=== PATIENT | female | born 1985 | race Caucasian/White ===

== ENCOUNTER 2018-04-15 19:31 | Inpatient (IN) ==
[2018-04-16] MEDS ORDERED: Acetaminophen 325 MG Tablet PO PRN (05:36)
[2018-04-16] MEDS ORDERED: Bisacodyl 10 MG Supp RECTAL PRN (05:36)
[2018-04-16] MEDS ORDERED: Temazepam 15 MG Capsule PO PRN (05:36)
[2018-04-16] MEDS: Senna/Docusate Sodium 8.6/50 MG Tablet PO SCH ×2 (08:23→21:08)
[2018-04-16 10:25] LABS: Hematocrit 29.3 % (35.0-46.0); Mean Corpuscular Hemoglobin 21.5 pg (27.0-34.0); Mean Platelet Volume 11.3 fL (7.0-11.0); Platelet Count 140 th/mm3 (150-450); Red Blood Count 4.18 mil/mm3 (4.00-5.30); White Blood Count 8.6 th/mm3 (4.0-11.0)
[2018-04-16 10:28] LABS: Mean Corpuscular HGB Conc 30.7 % (32.0-36.0)
[2018-04-16 10:33] LABS: INR 1.2 Ratio; Prothrombin Time 11.7 sec (9.8-11.6)
--- NOTE | 2018-04-16 11:35 | P.HPIM ---
History of Present Illness Primary Care Physician: UNKNOWN Chief Complaint: pain to the left leg History of Present Illness: patient is a 32 y/o female with o significant past medical history who presented to ER with headache and pain to the left leg. she says that she was at her usual state of health till Friday when she started to have some pain to the left thigh. she says that she had some sob and chest pressure at the time. she says that she gets headache from time to time and it normally resolved on taking pain medications but this time the headache persisted till she came to ER. she denies any other symptoms including focal weakness. she doesn't report any recent surgery or long trips. she also says that her menstruation is not regular and is heavy from time to time.at the time of my evaluation she was resting comfortably with o headache, chest pain or sob. Inpatient Certification: I certify that the inpatient services were ordered in accordance with Medicare regulations governing the order. This includes certification that hospital inpatient services are reasonable and necessary and in the case of services not specified as inpatient-only under 42 CFR 419.22(n), that they are appropriately provided as inpatient services in accordance to with the 2-midnight benchmark under 43 CFR 412.3(e) Estimated Total Length of Stay (Days): 2 Plans for Post Hospital Care: Not yet determined Review of Systems All other systems reviewed negative except as stated in HPI PMFSH - History History Provided By: Patient - Tobacco History Second Hand Smoke Exposure: No Smoking Status: Never smoker - Alcohol History How Often Do You Have a Drink Containing Alcohol: Never - Substance Use History Substance History: No History of Abuse - Immunization History Hx Influenza Vaccine This Season: Unable to Assess Medications and Allergies Active Medications: Active Medications Acetaminophen (Tylenol) 650 mg PO Q4H PRN PRN Reason: Temp > 100.4 Last Admin: 04/16/18 08:22 Dose: 650 mg Al Hydroxide/Mg Hydroxide (Milk Of Magnesia Liq) 30 ml PO Q12H PRN PRN Reason: Mild Constipation Bisacodyl (Dulcolax Supp) 10 mg RECTAL DAILY PRN PRN Reason: SEVERE CONSITIPATION Heparin Sodium/Dextrose (Heparin/D5w 25,000 U/250 Ml) 25,000 unit in 250 mls @ 18 mls/hr IV.CONT TITRATE PRN; Protocol PRN Reason: Per Protocol Lactulose (Lactulose Liq) 30 ml PO DAILY PRN PRN Reason: SEVERE CONSITIPATION Ondansetron HCl (Zofran Inj) 4 mg IV.PUSH Q6H PRN PRN Reason: NAUSEA OR VOMITING Senna/Docusate Sodium (Merna-Colace) 1 tab PO BID ABHIJEET Last Admin: 04/16/18 08:23 Dose: Not Given Sennosides (Senokot) 17.2 mg PO Q12H PRN PRN Reason: Moderate Constipation Temazepam (Restoril) 15 mg PO HS PRN PRN Reason: INSOMNIA Allergies Allergy/AdvReac Type Severity Reaction Status Date / Time No Known Allergies Allergy Unverified 04/15/18 19:37 Home Medications Medication Instructions Recorded Confirmed Type No Known Home Medications 04/15/18 04/15/18 History Exam Vital signs: Vital Signs 04/16/18 05:56 04/16/18 08:00 Temperature 99.6 F Pulse Rate 95 H 94 H Respiratory Rate 18 18 Blood Pressure 140/84 132/75 Pulse Oximetry 99 98 Intake & Output 04/15/18 04/16/18 04/16/18 18:59 06:59 18:59 Weight 241 kg Other: Weight On Admission 241 kg - Constitutional no acute distress - Routine HEENT Exam Eye: Present: PERRL - Routine Neck Exam Present: supple - Routine Respiratory Exam Present: CTA bilaterally - Routine Cardiovascular Exam Present: RRR - Routine Abdominal Exam Present: soft - Routine Extremities Exam Present: tenderness (mild tenderness on left thigh.) - Routine Neurological Exam Present: alert, oriented X3 Results - Labs CBC & Chem 7: 04/16/18 09:14 Labs: Short CBC 04/16/18 Range/Units 09:14 WBC 8.6 (4.0-11.0) th/mm3 Hgb 9.0 L (11.6-15.3) gm/dL Hct 29.3 L (35.0-46.0) % Plt Count 140 L (150-450) th/mm3 Caprini VTE Risk Assessment Caprini VTE Risk Assessment: Moderate/High Risk (score >= 2) Caprini Risk Assessment Model: Point Value = 1 Point Value = 2 Point Value = 3 Point Value = 5 Age 41-60 Minor surgery BMI > 25 kg/m2 Swollen legs Varicose veins or History of unexplained or recurrent spontaneous Oral contraceptives or hormone replacement Sepsis (< 1 month) Serious lung disease, including pneumonia (< 1 month) Abnormal pulmonary function Acute myocardial infarction Congestive heart failure (< 1 month) History of inflammatory bowel disease Medical patient at bed rest Age 61-74 Arthroscopic surgery Major open surgery (> 45 min) Laparoscopic surgery (> 45 min) Malignancy Confined to bed (> 72 hours) Immobilizing plaster cast Central venous access Age >= 75 History of VTE Family history of VTE Factor V Leiden Prothrombin [id number] Lupus anticoagulant Anticardiolipin antibodies Elevated serum homocysteine Heparin-induced thrombocytopenia Other congenital or acquired thrombophilia Stroke (< 1 month) Elective arthroplasty Hip, pelvis, or leg fracture Acute spinal cord injury (< 1 month) Prophylaxis Regimen: Total Risk Factor Score Risk Level Prophylaxis Regimen 0-1 Low Early ambulation 2 Moderate Order ONE of the following: *Sequential Compression Device (SCD) *Heparin 5000 units SQ BID 3-4 Higher Order ONE of the following medications: *Heparin 5000 units SQ TID *Enoxaparin/Lovenox 40 mg SQ daily (WT < 150 kg, CrCl > 30 mL/min) *Enoxaparin/Lovenox 30 mg SQ daily (WT < 150 kg, CrCl > 10-29 mL/min) *Enoxaparin/Lovenox 30 mg SQ BID (WT < 150 kg, CrCl > 30 mL/min) AND/OR *Sequential Compression Device (SCD) 5 or more Highest Order ONE of the following medications: *Heparin 5000 units SQ TID (Preferred with Epidurals) *Enoxaparin/Lovenox 40 mg SQ daily (WT < 150 kg, CrCl > 30 mL/min) *Enoxaparin/Lovenox 30 mg SQ daily (WT < 150 kg, CrCl > 10-29 mL/min) *Enoxaparin/Lovenox 30 mg SQ BID (WT < 150 kg, CrCl > 30 mL/min) AND *Sequential Compression Device (SCD) Assessment and Plan - Plan - PE continue on Heparin drip- check venous doppler of the left lower extremity and consult Hematology. -anemia- hypochromic microcytic- likely due to abnormal uterine bleeding check the iron panel- f/u with [facility] as outpatient. Discharge Planning: pending Hematology evaluation.
[2018-04-16] MEDS: Heparin Drip 25,000 UNIT/250 ML BAG IV.CONT PRN (12:01)
--- NOTE | 2018-04-16 13:25 | P.CON ---
History of Present Illness Service: Hematology Consult date: 04/16/18 Reason for Consult: Unprovoked pulmonary emboli (submassive). Primary Care Provider: UNKNOWN Chief Complaint: Difficulty breathing, chest pain and pain in the left thigh. History of Present Illness: Ms. Ruelas is a 32-year-old female who denies having any chronic medical comorbid conditions. She denies having had any previous history of venous or arterial thromboembolism and other than her father who had a "blood clot" in his leg she has no known family history of venous thromboembolism or arterial thromboembolism. The patient reports being in her usual good state of health up until 04/13/2018. She reports noticing pain into her left thigh and leg, she felt as if she had strained the muscles in her leg after having been active over the weekend with her children. Shortly thereafter she noticed a tightness/strain on the left side for chest and this was associated with difficulty with breathing both at rest and with exertion. She reports the tightness in her chest gradually dissipated. Later that evening she reports going to bed but waking up in the middle of the night in a panic, she tells me she was disoriented after she woke up and had to be reoriented by her . On the night of 04/15/2018 her symptoms of left leg pain persisted and difficulty breathing persisted so she came into the emergency department at [facility] for further workup and evaluation. Overnight she underwent a CT angiogram of the thorax which revealed small volume pulmonary emboli involving the second order pulmonary arteries to the right lower lobe of the lung. The patient was assessed by the emergency department and based on clinical presentation i.e. lack of signs or symptoms of respiratory distress, normal O2 saturations and regular heart rhythm and rate she was assessed to have a submassive pulmonary embolus. She was initiated on heparin infusion and has been transferred to the medical surgical unit. Careful history was obtained from the patient, she denies having had any recent acute illness, she denies any recent travel, she denies being on contraceptives and denies any recent surgeries. Review of Systems All other systems reviewed negative except as stated in HPI Constitutional: Reports headache(s), Denies anorexia, Denies body ache(s), Denies chills, Denies daytime sleepiness, Denies excessive sweating, Denies fatigue, Denies fever(s), Denies increased appetite, Denies lack of energy, Denies malaise, Denies night sweats, Denies weakness, Denies weight gain, Denies weight loss Ears, Nose, Mouth, and Throat: Denies abnormal hearing, Denies bleeding gums, Denies bad breath, Denies change in voice, Denies dental pain, Denies difficulty swallowing, Denies dizziness, Denies dry mouth, Denies ear discharge , Denies ear pain, Denies facial pain, Denies headache(s), Denies hearing loss, Denies hoarseness, Denies lip swelling, Denies nosebleed, Denies mouth lesions, Denies mouth pain, Denies nasal congestion, Denies nasal discharge, Denies nasal obstruction, Denies nasal trauma, Denies neck lump, Denies neck pain, Denies nose pain, Denies pain with swallowing, Denies poor balance, Denies post nasal drip, Denies ringing in the ears, Denies sinus pain, Denies sinus pressure , Denies sore throat, Denies throat swelling, Denies tongue swelling, Denies other Cardiovascular: Reports chest pain, Reports chest pain at rest, Reports fast heart rate, Reports lightheadedness, Reports shortness of breath, Reports shortness of breath with activity, Reports shortness of breath when lying down, Reports shortness of breath causing sudden awakening, Denies chest pain with activity, Denies excessive sweating, Denies fainting, Denies foot swelling, Denies generalized swelling, Denies irregular heart rhythm, Denies leg pain with activity, Denies leg sores, Denies leg swelling, Denies slow heart rate Respiratory: Reports shortness of breath, Reports shortness of breath with activity, Denies change in phlegm color, Denies chest congestion, Denies cough, Denies coughing up blood, Denies excessive phlegm production, Denies pain on inspiration, Denies pain with cough, Denies snoring, Denies stridor, Denies wheezing Gastrointestinal: Denies abdominal pain, Denies belching, Denies black, tarry stools, Denies bloating, Denies bright, red blood in stools, Denies change in bowel habits, Denies constant urge to pass stool, Denies change in stools, Denies coffee ground vomit, Denies constipation, Denies cramping, Denies difficulty swallowing, Denies excessive passing of gas, Denies feeling full early, Denies heartburn, Denies incontinent of stools, Denies loose stools, Denies nausea, Denies pain with swallowing, Denies vomiting, Denies vomiting blood, Denies other Genitourinary: Denies abnormal periods, Denies abnormal vaginal bleeding, Denies absent period, Denies bleeding between periods, Denies blood in urine, Denies difficulty starting urination, Denies difficulty urinating, Denies dribbling after urination, Denies frequent nighttime urination, Denies genital itching, Denies genital lesions, Denies heavy periods, Denies hot flashes, Denies light periods, Denies nipple discharge, Denies painful intercourse, Denies painful periods, Denies painful urination, Denies pelvic pain, Denies prolapse symptoms, Denies sexual problems, Denies side pain, Denies urinary incontinence, Denies urinary urgency, Denies vaginal discharge, Denies vaginal dryness, Denies vaginal odor, Denies vaginal itching, Denies other Musculoskeletal: Denies abnormal walking, Denies back pain, Denies body aches, Denies decreased muscle mass, Denies deformity, Denies joint pain, Denies joint swelling, Denies limited joint movement, Denies loss of height, Denies muscle cramps, Denies muscle weakness, Denies neck pain, Denies numbness, Denies radiating pain into limb, Denies stiffness, Denies tingling, Denies other Skin/Breast: Denies acne, Denies bleeding lesions, Denies boil, Denies breast swelling, Denies breast skin changes, Denies breast pain, Denies breast lump, Denies change in breast shape, Denies change in hair, Denies change in skin color, Denies changing lesions, Denies dry skin, Denies excessive hair growth, Denies hair loss, Denies itching, Denies lesions, Denies nail changes, Denies new lesions, Denies nipple discharge, Denies non-healing lesions, Denies redness , Denies sensitivity to light, Denies rash, Denies skin pain, Denies skin ulcer , Denies sores, Denies stretch aguirre, Denies unusual bruising, Denies wounds, Denies yellowing of the skin, Denies other Neurologic: Denies abnormal hearing, Denies abnormal movements, Denies abnormal speech, Denies abnormal walking, Denies behavioral changes, Denies burning sensations, Denies confusion, Denies dizziness, Denies fainting, Denies frequent falls, Denies headache(s), Denies lack of coordination, Denies localized weakness, Denies loss of vision, Denies memory loss, Denies numbness, Denies other visual disturbances, Denies radiating pain, Denies restless legs, Denies convulsions, Denies seizure-like activity, Denies sensory deficit, Denies tingling, Denies tingling/numbness/burning sensations, Denies tremor(s), Denies unsteadiness, Denies weakness, Denies other Psychiatric: Denies abnormal sleep pattern, Denies anxiety, Denies behavioral changes, Denies change in appetite, Denies change in sex drive, Denies confusion , Denies depression, Denies difficulty concentrating, Denies hearing things others do not hear, Denies hopelessness, Denies irritability, Denies lack of enjoyment, Denies memory loss, Denies mood swings, Denies panic attacks, Denies paranoia, Denies seeing things others do not see, Denies sensing things others do not sense, Denies tactile hallucinations, Denies thoughts of hurting/killing others, Denies thoughts of hurting/killing yourself, Denies other Endocrine: Denies cold intolerance, Denies excessive sweating, Denies flushing, Denies heat intolerance, Denies increased hunger, Denies increased thirst, Denies increased urination, Denies rapid, pounding, or irregular heartbeat, Denies other Hematologic/Lymphatic: Denies easy bleeding, Denies easy bruising, Denies enlarged lymph nodes, Denies other Allergic/Immunologic: Denies GI upset with certain foods, Denies hives, Denies itchy eyes, Denies lip swelling, Denies seasonal runny nose, Denies throat swelling, Denies tongue swelling, Denies wheezing, Denies other PMFSH - History History Provided By: Patient - Medical History Medical History: Medical History (Last Updated 04/16/18 @ 13:17 by Rakesh Wan MD) Lipoma of abdominal wall Morbid obesity - Surgical History Surgical History: Surgical History (Last Updated 04/16/18 @ 13:17 by Rakesh Wan MD) Previous section - Family History Family History: Family History (Last Updated 04/16/18 @ 13:18 by Rakesh Wan MD) Other Deep vein blood clot of left lower extremity - Tobacco History Second Hand Smoke Exposure: No Tobacco Use In Past 30 Days: No Smoking Status: Never smoker - Alcohol History How Often Do You Have a Drink Containing Alcohol: Never - Substance Use History Substance History: No History of Abuse - Travel History History of Recent Travel: Yes (Road trip to [facility] in early March 2018) Recent Travel in the [facility] Within the Last 8 Weeks: Yes Recent Travel Out of the Country Within the Last 8 Weeks: No - Immunization History Hx Influenza Vaccine This Season: Unable to Assess Medications and Allergies Active Medications: Active Medications Acetaminophen (Tylenol) 650 mg PO Q4H PRN PRN Reason: Temp > 100.4 Last Admin: 04/16/18 08:22 Dose: 650 mg Al Hydroxide/Mg Hydroxide (Milk Of Magnesia Liq) 30 ml PO Q12H PRN PRN Reason: Mild Constipation Bisacodyl (Dulcolax Supp) 10 mg RECTAL DAILY PRN PRN Reason: SEVERE CONSITIPATION Heparin Sodium/Dextrose (Heparin/D5w 25,000 U/250 Ml) 25,000 unit in 250 mls @ 18 mls/hr IV.CONT TITRATE PRN; Protocol PRN Reason: Per Protocol Last Admin: 04/16/18 12:01 Dose: 1,800 units/hr, 18 mls/hr Lactulose (Lactulose Liq) 30 ml PO DAILY PRN PRN Reason: SEVERE CONSITIPATION Ondansetron HCl (Zofran Inj) 4 mg IV.PUSH Q6H PRN PRN Reason: NAUSEA OR VOMITING Senna/Docusate Sodium (Merna-Colace) 1 tab PO BID ABHIJEET Last Admin: 04/16/18 08:23 Dose: Not Given Sennosides (Senokot) 17.2 mg PO Q12H PRN PRN Reason: Moderate Constipation Temazepam (Restoril) 15 mg PO HS PRN PRN Reason: INSOMNIA Allergies Allergy/AdvReac Type Severity Reaction Status Date / Time No Known Allergies Allergy Unverified 04/15/18 19:37 Home Medications Medication Instructions Recorded Confirmed Type No Known Home Medications 04/15/18 04/15/18 History Physical Exam Vital signs: Vital Signs 04/16/18 05:56 04/16/18 08:00 Temperature 99.6 F Pulse Rate 95 H 94 H Respiratory Rate 18 18 Blood Pressure 140/84 132/75 Pulse Oximetry 99 98 Intake & Output 04/15/18 04/16/18 04/16/18 18:59 06:59 18:59 Weight 241 kg Other: Weight On Admission 241 kg - Constitutional no acute distress, morbidly obese Comments: Young female, sitting up in bed no acute distress. Heavily tattooed. - Routine HEENT Exam Head: Present: normocephalic, atraumatic Eye: Present: EOMI, PERRL, normal accommodation. Absent: conjunctival icterus ENT: Present: mucous membranes moist. Absent: mucous membranes dry - Routine Neck Exam Present: supple, full ROM. Absent: JVD, carotid bruit - Routine Respiratory Exam Present: CTA bilaterally. Absent: accessory muscle use, prolonged expiratory phase, rales, respiratory distress, rhonchi, stridor - Routine Cardiovascular Exam Present: RRR, S1, S2. Absent: murmur, gallop, rubs, S3, S4, click - Routine Abdominal Exam Present: soft, normoactive bowel sounds. Absent: tenderness, distended, rebound , guarding, firm, rigid, organomegaly, mass, hernia - Routine Extremities Exam Present: full ROM, pulses intact, normal capillary refill. Absent: cyanosis, clubbing, edema, calf tenderness, palpable cord, Anahi's sign, tenderness, joint swelling - Routine Skin Exam Present: intact. Absent: cyanosis, erythema, dry, pallor - Routine Neurological Exam Present: alert, oriented X3, CN II-XII intact. Absent: sensory deficit, motor deficit - Detailed Neurological Exam: Coma Scale Eye Opening: Spontaneous - Routine Psychiatric Exam Present: normal affect Assessment and Plan - Assessment (1) Pulmonary emboli Code(s): I26.99 - Other pulmonary embolism without acute cor pulmonale Status : Acute Plan: Based on clinical presentation, assessment of vital signs as well as records of vital signs going back to presentation as well as review of CT angiogram with assessment of pulmonary embolus volume it appears she has had a symptom massive pulmonary embolus. I have requested echocardiogram to assess peak pulmonary arterial pressures as well as to assess right ventricular function. Because there is no significant recent travel history, no history of oral contraceptive use, no significant family history of venous thrombus embolism other than her father who is developed a "blood clot in his legs "when he was chronically ill and bedbound I have requested a pro thrombotic workup. This is been ordered and will take at least 2 weeks to be fully resulted. Tests ordered include antiphospholipid antibodies with lupus anticoagulant, factor V Leiden mutation, prothrombin gene mutation, Antithrombin 3 levels, factor VIII levels, protein C and protein S levels and functional status as well as homocysteine levels. I would recommend therapeutic anticoagulation, she may be discharged home on oral anticoagulation with a loading dose of either Eliquis or Xarelto. These medications may be started at the time of heparin discontinuation. Outpatient hematology/oncology follow-up will be arranged. - Plan 1. Obtain echocardiogram. 2. Await results of ultrasound Doppler studies of the left and right lower extremity's. 3. Prothrombotic workup has been ordered the results will take at least 10 days to 14 days to be resulted. 4. At the time of discharge transition from intravenous heparin to either oral Eliquis or Xarelto both these medications need to be initiated at loading doses. 5. Outpatient oncology follow-up will be arranged. Discussed Condition With: Patient. (1) Pulmonary emboli Qualifiers: Pulmonary embolism type: other Chronicity: acute Acute cor pulmonale presence: without acute cor pulmonale Qualified Code(s): I26.99 - Other pulmonary embolism without acute cor pulmonale
--- NOTE | 2018-04-16 14:05 | US ---
EXAM DATE: 04/16/2018 1:47 PM EDT AGE/SEX: 32 years / Female INDICATIONS: Left leg pain. CLINICAL DATA: This is the patient's initial encounter. Patient reports that signs and symptoms have been present for 3 days and indicates a pain score of 7/10. MEDICAL/SURGICAL HISTORY: . Lipoma of abdominal wall. Morbid obesity. section. COMPARISON: No prior exams available for comparison. TECHNIQUE: Venous ultrasound of both lower extremities was performed from the inguinal ligament to t he proximal calf. Real-time, color Doppler and spectral tracing, compression and augmentation techni ques were used. FINDINGS: There is occlusive thrombus seen throughout the superficial femoral vein. The common femor al vein and popliteal veins are patent. CONCLUSION: Occlusive thrombus seen throughout the left superficial vein. Electronically signed by: Addy Guillen MD 04/16/2018 2:03 PM EDT
--- NOTE | 2018-04-16 17:04 | ECHRPT ---
Indication: chest pain CONCLUSIONS The left ventricular systolic function is hyperdynamic with an estimated ejection fraction in the ra nge of 65- 70%. Normal left ventricular size. Wall thickness is normal. No regional wall motion abnormalities are present. The pulmonary valve is not well visualized. BP: / HR: Rhythm: Sinus MEASUREMENTS (Male / Female) Normal Values Technical Quality:Fair 2D ECHO LV Diastolic Diameter PLAX 4.4 cm 4.2 - 5.9 / 3.9 - 5.3 cm LV Systolic Diameter PLAX 2.7 cm IVS Diastolic Thickness 0.9 cm 0.6 - 1.0 / 0.6 - 0.9 cm LVPW Diastolic Thickness 0.9 cm 0.6 - 1.0 / 0.6 - 0.9 cm LV Relative Wall Thickness 0.4 RV Internal Dim ED PLAX 2.8 cm LVOT Diameter 1.6 cm LA Systolic Diameter LX 2.9 cm 3.0 - 4.0 / 2.7 - 3.8 cm M-MODE Aortic Root Diameter MM 2.3 cm LA Systolic Diameter MM 2.9 cm LA Ao Ratio MM 1.3 AV Cusp Separation MM 2.0 cm DOPPLER AV Peak Velocity 125.0 cm/s AV Peak Gradient 6.3 mmHg LVOT Peak Velocity 114.0 cm/s LVOT Peak Gradient 5.2 mmHg AV Area Cont Eq pk 1.8 cm MV Area PHT 5.8 cm Mitral E Point Velocity 100.0 cm/s Mitral A Point Velocity 83.4 cm/s Mitral E to A Ratio 1.2 LV E' Lateral Velocity 13.1 cm/s Mitral E to LV E' Lateral Ratio 7.6 LV E' Septal Velocity 46.5 cm/s Mitral E to LV E' Septal Ratio 2.1 PV Peak Velocity 84.2 cm/s PV Peak Gradient 2.8 mmHg FINDINGS LEFT VENTRICLE The left ventricular systolic function is hyperdynamic with an estimated ejection fraction in the ra nge of 65- 70%. Normal left ventricular size. Wall thickness is normal. No regional wall motion abnormalities are present. RIGHT VENTRICLE Normal right ventricular size and systolic function. LEFT ATRIUM The left atrial size is normal. RIGHT ATRIUM The right atrial size is normal. ATRIAL SEPTUM Normal atrial septal thickness without atrial level shunting by limited color doppler interrogation. AORTA The aortic root and proximal ascending aorta are normal in size on limited imaging. MITRAL VALVE Structurally normal mitral valve. No mitral valve stenosis or regurgitation. AORTIC VALVE Trileaflet aortic valve. No aortic valve stenosis or regurgitation. TRICUSPID VALVE Structurally normal tricuspid valve. No tricuspid valve stenosis or regurgitation. PULMONARY VALVE The pulmonary valve is not well visualized. VESSELS The inferior vena cava is normal in size. PERICARDIUM No pericardial effusion. Edwin Hsieh MD, FACC (Electronically Signed) Final Date:16 April 2018 17:02
[2018-04-16 19:07] LABS: % Iron Saturation 4.4 % (20-50)
[2018-04-17] MEDS: Heparin Drip 25,000 UNIT/250 ML BAG IV.CONT PRN (01:37)
[2018-04-17] MEDS: Senna/Docusate Sodium 8.6/50 MG Tablet PO SCH (08:00)
--- NOTE | 2018-04-17 12:24 | P.HPIM ---
History of Present Illness Primary Care Physician: UNKNOWN Chief Complaint: Difficulty breathing, chest pain and pain in the left thigh. History of Present Illness: patient is a 32 y/o female with o significant past medical history who presented to ER with headache and pain to the left leg. she says that she was at her usual state of health till Friday when she started to have some pain to the left thigh. she says that she had some sob and chest pressure at the time. she says that she gets headache from time to time and it normally resolved on taking pain medications but this time the headache persisted till she came to ER. she denies any other symptoms including focal weakness. she doesn't report any recent surgery or long trips. she also says that her menstruation is not regular and is heavy from time to time.at the time of my evaluation she was resting comfortably with o headache, chest pain or sob. Inpatient Certification: I certify that the inpatient services were ordered in accordance with Medicare regulations governing the order. This includes certification that hospital inpatient services are reasonable and necessary and in the case of services not specified as inpatient-only under 42 CFR 419.22(n), that they are appropriately provided as inpatient services in accordance to with the 2-midnight benchmark under 43 CFR 412.3(e) Estimated Total Length of Stay (Days): 2 Plans for Post Hospital Care: Not yet determined PMFSH - History History Provided By: Patient - Medical History Medical History: Medical History (Last Updated 04/16/18 @ 13:17 by Rakesh Wan MD) Lipoma of abdominal wall Morbid obesity - Surgical History Surgical History: Surgical History (Last Updated 04/16/18 @ 13:17 by Rakesh Wan MD) Previous section - Family History Family History: Family History (Last Updated 04/16/18 @ 13:18 by Rakesh Wan MD) Father Deep vein blood clot of left lower extremity - Tobacco History Second Hand Smoke Exposure: No Tobacco Use In Past 30 Days: No Smoking Status: Never smoker - Alcohol History How Often Do You Have a Drink Containing Alcohol: Never - Substance Use History Substance History: No History of Abuse - Travel History History of Recent Travel: Yes (Road trip to [facility] in early March 2018) Recent Travel in the [facility] Within the Last 8 Weeks: Yes Recent Travel Out of the Country Within the Last 8 Weeks: No - Immunization History Hx Influenza Vaccine This Season: Unable to Assess Medications and Allergies Active Medications: Active Medications Acetaminophen (Tylenol) 650 mg PO Q4H PRN PRN Reason: fever or headache Last Admin: 04/16/18 08:22 Dose: 650 mg Hydrocodone Bitart/Acetaminophen (Blessing 5/325) 1 tab PO Q6H PRN PRN Reason: headache not relieved by tylen Last Admin: 04/17/18 01:50 Dose: 1 tab Al Hydroxide/Mg Hydroxide (Milk Of Magnesia Liq) 30 ml PO Q12H PRN PRN Reason: Mild Constipation Bisacodyl (Dulcolax Supp) 10 mg RECTAL DAILY PRN PRN Reason: SEVERE CONSITIPATION Heparin Sodium/Dextrose (Heparin/D5w 25,000 U/250 Ml) 25,000 unit in 250 mls @ 18 mls/hr IV.CONT TITRATE PRN; Protocol PRN Reason: Per Protocol Last Admin: 04/17/18 01:37 Dose: 1,800 units/hr, 18 mls/hr Lactulose (Lactulose Liq) 30 ml PO DAILY PRN PRN Reason: SEVERE CONSITIPATION Ondansetron HCl (Zofran Inj) 4 mg IV.PUSH Q6H PRN PRN Reason: NAUSEA OR VOMITING Senna/Docusate Sodium (Merna-Colace) 1 tab PO BID ABHIJEET Last Admin: 04/17/18 08:00 Dose: Not Given Sennosides (Senokot) 17.2 mg PO Q12H PRN PRN Reason: Moderate Constipation Temazepam (Restoril) 15 mg PO HS PRN PRN Reason: INSOMNIA Last Admin: 04/16/18 21:08 Dose: 15 mg Allergies Allergy/AdvReac Type Severity Reaction Status Date / Time No Known Allergies Allergy Unverified 04/15/18 19:37 Home Medications Medication Instructions Recorded Confirmed Type No Known Home Medications 04/15/18 04/15/18 History Exam Vital signs: Vital Signs 04/16/18 13:19 04/16/18 18:00 04/16/18 20:00 Temperature 97.7 F 98.7 F Pulse Rate 89 101 H 93 H Respiratory Rate 18 18 18 Blood Pressure 118/74 135/82 148/65 H Pulse Oximetry 97 99 04/17/18 00:00 04/17/18 04:00 04/17/18 06:41 Temperature 98.0 F 97.7 F Pulse Rate 102 H 94 H Respiratory Rate 18 18 12 Blood Pressure 122/78 140/62 Pulse Oximetry 98 96 04/17/18 08:00 Temperature 97.7 F Pulse Rate 85 Respiratory Rate 20 Blood Pressure 141/58 H Pulse Oximetry 98 Intake & Output 04/16/18 04/17/18 04/17/18 18:59 06:59 18:59 Intake Total 250 / 250 Balance 250 / 250 Weight 110.9 kg Intake: IV 250 / 250 Heparin/D5W 25,000 U/250 mL 25, 250 / 250 000 unit In 250 ml @ 1,800 UNITS/HR 18 mls/hr IV.CONT TITRATE PRN Rx#:[id number] Other: # Voids 2 Date of Last Bowel Movement 04/16/18 04/16/18 # Bowel Movements 1 Results - Labs CBC & Chem 7: 04/16/18 09:14 - Imaging Impressions Venous Doppler Study 04/16/18 00:00 CONCLUSION: Occlusive thrombus seen throughout the left superficial vein. Caprini VTE Risk Assessment Caprini VTE Risk Assessment: Moderate/High Risk (score >= 2) Caprini Risk Assessment Model: Point Value = 1 Point Value = 2 Point Value = 3 Point Value = 5 Age 41-60 Minor surgery BMI > 25 kg/m2 Swollen legs Varicose veins or History of unexplained or recurrent spontaneous Oral contraceptives or hormone replacement Sepsis (< 1 month) Serious lung disease, including pneumonia (< 1 month) Abnormal pulmonary function Acute myocardial infarction Congestive heart failure (< 1 month) History of inflammatory bowel disease Medical patient at bed rest Age 61-74 Arthroscopic surgery Major open surgery (> 45 min) Laparoscopic surgery (> 45 min) Malignancy Confined to bed (> 72 hours) Immobilizing plaster cast Central venous access Age >= 75 History of VTE Family history of VTE Factor V Leiden Prothrombin [id number] Lupus anticoagulant Anticardiolipin antibodies Elevated serum homocysteine Heparin-induced thrombocytopenia Other congenital or acquired thrombophilia Stroke (< 1 month) Elective arthroplasty Hip, pelvis, or leg fracture Acute spinal cord injury (< 1 month) Prophylaxis Regimen: Total Risk Factor Score Risk Level Prophylaxis Regimen 0-1 Low Early ambulation 2 Moderate Order ONE of the following: *Sequential Compression Device (SCD) *Heparin 5000 units SQ BID 3-4 Higher Order ONE of the following medications: *Heparin 5000 units SQ TID *Enoxaparin/Lovenox 40 mg SQ daily (WT < 150 kg, CrCl > 30 mL/min) *Enoxaparin/Lovenox 30 mg SQ daily (WT < 150 kg, CrCl > 10-29 mL/min) *Enoxaparin/Lovenox 30 mg SQ BID (WT < 150 kg, CrCl > 30 mL/min) AND/OR *Sequential Compression Device (SCD) 5 or more Highest Order ONE of the following medications: *Heparin 5000 units SQ TID (Preferred with Epidurals) *Enoxaparin/Lovenox 40 mg SQ daily (WT < 150 kg, CrCl > 30 mL/min) *Enoxaparin/Lovenox 30 mg SQ daily (WT < 150 kg, CrCl > 10-29 mL/min) *Enoxaparin/Lovenox 30 mg SQ BID (WT < 150 kg, CrCl > 30 mL/min) AND *Sequential Compression Device (SCD) Assessment and Plan - Plan - PE started on Heparin drip- will switch to PO Xarelto with outpatient f/u with hematology; Hematology consult appreciated. -anemia- hypochromic microcytic- likely due to abnormal uterine bleeding start on ferrous sulfate; f/u with [employer] [employer] [facility] as outpatient. Discharge Planning: dc home today with f/u by pcp and hematology. see med list. d/w the patient and case management.
[2018-04-17] MEDS ORDERED: Rivaroxaban 15 MG Tablet PO ONE (14:00)
== END 2018-04-17 13:09 | disposition home or self-care (01) ==
LOC: NEDDLT 04-16 05:00 → N05 04-16 05:10
PROVIDERS: ADMIT Internal Medicine; ATTEND Internal Medicine